=== PATIENT | male | born 1935 | race Caucasian/White ===

== ENCOUNTER 2022-11-22 12:33 | Day surgery (SDC) | payer MEDICARE ==
[2022-11-22] MEDS ORDERED: Acetaminophen 325 MG TAB PO SCH (13:15)
[2022-11-22] MEDS ORDERED: diphenhydrAMINE 25 MG CAP ONE (13:54)
[2022-11-22] MEDS ORDERED: Acetaminophen 500 MG TAB ONE (13:54)
[2022-11-22] MEDS ORDERED: Acetaminophen 325 MG TAB ONE (13:56)
[2022-11-22 17:26] VITALS: BP 187/80; TEMP 98.5
== END 2022-11-22 17:27 | disposition home or self-care (01) ==
LOC: ONC/OP 12:33
PROVIDERS: ATTEND Internal Medicine Gastroenterology
DX: D50.0 Iron deficiency anemia secondary to blood loss (chronic) (principal); I48.91 Unspecified atrial fibrillation; K21.9 Gastro-esophageal reflux disease without esophagitis; I10 Essential (primary) hypertension; E78.5 Hyperlipidemia, unspecified; M19.90 Unspecified osteoarthritis, unspecified site; Z90.49 Acquired absence of other specified parts of digestive tract; Z79.01 Long term (current) use of anticoagulants; Z86.73 Personal history of transient ischemic attack (TIA), and cerebral infarction without residual deficits; Z87.891 Personal history of nicotine dependence; Z88.8 Allergy status to other drugs, medicaments and biological substances; Z86.010 Personal history of colon polyps; Z79.899 Other long term (current) drug therapy
CPT/HCPCS: 36430; 86850; 86900; 86901; 86920; P9016